=== PATIENT | female | born 1995 | race African-American/Black ===

== ENCOUNTER 2019-08-20 18:20 | Observation (INO) | payer MEDICAID ==
[~2019-08-20] VITALS: Ht 154 cm; Wt 70.8 kg
[2019-08-20] MEDS ORDERED: LACTATED RINGERS 1,000 ML IV SCH (19:15)
[2019-08-20 19:17] LABS: CLARITY URINE CLOUDY (CLEAR); COLOR URINE YELLOW (YELLOW); KETONES URINE 1+ (NEGATIVE); LEUKOCYTE ESTERASE URINE 1+ (NEGATIVE); NITRITE URINE NEGATIVE (NEGATIVE); OCCULT BLOOD URINE NEGATIVE (NEGATIVE); PH URINE 6.5 (4.5-8.0); PROTEIN URINE NEGATIVE (NEGATIVE); SPECIFIC GRAVITY URINE 1.018 (1.005-1.030)
[2019-08-20] MEDS: TERBUTALINE SULFATE 1MG/ML VIAL SUBCUT PRN ×2 (20:05→22:06)
== END 2019-08-20 23:30 | disposition home or self-care (01) ==
LOC: 8 EST LDRP 18:20
PROVIDERS: ADMIT Obstetrics & Gynecology; ATTEND Obstetrics & Gynecology
DX: O60.03 Preterm labor without delivery, third trimester (principal); Z3A.34 34 weeks gestation of pregnancy
CPT/HCPCS: 76805; 76818; 81003; 96360; 96361; 96372; 99281; G0378; J3105; 59412